=== PATIENT | male | born 1995 | race Caucasian/White ===

== ENCOUNTER 2020-03-21 16:07 | Emergency (ER) | payer OTHER ==
[~2020-03-21] VITALS: Ht 193 cm; Wt 93.0 kg
[2020-03-21] MEDS ORDERED: VENTOLIN HFA18 GM INH (16:32)
== END 2020-03-21 17:27 | disposition home or self-care (01) ==
LOC: ED 16:07
DX: S83.91XA Sprain of unspecified site of right knee, initial encounter (principal); J45.909 Unspecified asthma, uncomplicated; Z87.891 Personal history of nicotine dependence; Z79.899 Other long term (current) drug therapy; W17.89XA Other fall from one level to another, initial encounter
CPT/HCPCS: 73560; 99283-25

== ENCOUNTER 2021-07-15 07:21 | Emergency (ER) | payer OTHER, BC ==
[~2021-07-15] VITALS: Ht 193 cm; Wt 90.7 kg
[~2021-07-15 07:21] MED LIST: VENTOLIN HFA18 GM INH
[2021-07-15] MEDS ORDERED: CEPHALEXIN500 MG PO (08:47)
[2021-07-15] MEDS ORDERED: HYDROCODON-ACE1 EA10 PO (08:47)
== END 2021-07-15 09:14 | disposition home or self-care (01) ==
LOC: ED 07:21
DX: S62.603B Fracture of unspecified phalanx of left middle finger, initial encounter for open fracture (principal); J45.909 Unspecified asthma, uncomplicated; Z87.891 Personal history of nicotine dependence; Z79.899 Other long term (current) drug therapy; W45.8XXA Other foreign body or object entering through skin, initial encounter; Y99.0 Civilian activity done for income or pay; Z23 Encounter for immunization
CPT/HCPCS: 64450; 73140; 90471; 90715; 99283-25; A9270

== ENCOUNTER 2022-09-23 10:17 | Emergency (ER) | payer SELFPAY ==
[~2022-09-23] VITALS: Ht 193 cm; Wt 103.2 kg
--- OUTSIDE RECORDS SUMMARY | ~2022-09-23 | XMS | Continuity of Care Document ---
Demographics + + + | Address | [address] | | | [place] [address] | + + + | Preferred Language | Unknown | + + + | Marital Status | Never | + + + | Hinduism Affiliation | Unknown | + + + | Race | White | + + + | Ethnic Group | Not or | + + + Author + + + | Author | [facility] | + + + | Organization | [facility] | + + + | Address | [address] | | | [place] [address] | + + + | Phone | | + + + Care Team Providers + + + + | Care Cat Scan Technologist Name | Role | Phone | + + + + Unavailable | Unavailable | + + + + Unavailable | Unavailable | + + + + Allergies No information. Encounters No information. Functional Status No information. Immunizations + + + + | date | description | facility | + + + + | 2021-07-15 00:00 | Tdap | [facility] | + + + + Medications + + + + | date | description | facility | + + + + | 2021-07-15 00:00 | CEPHALEXIN | [facility] | + + + + | 2021-07-15 00:00 | HYDROCODONE | [facility] | | | BIT/ACETAMINOPHEN | | + + + + | 2021-09-20 00:00 | ALBUTEROL SULFATE | [facility] | + + + + Problems + + + + | date | description | facility | + + + + | 2020-03-21 00:00 | Sprain of right knee | [facility] | + + + + | 2021-07-15 00:00 | Puncture wound of finger | [facility] | | | with foreign body | | + + + + | 2021-07-15 00:00 | Open fracture of phalanx | [facility] | | | of finger | | + + + + | 2021-07-15 07:23 | Unspecified asthma, | [facility] | | | uncomplicated [facility] | + + + + | 2021-07-15 07:23 | Puncture wound with foreign | [facility] | | | body of left middle finger | [facility] | | | without damage to nail, | | | | initial encounter | | + + + + | 2021-07-15 07:23 | Fracture of unspecified | [facility] | | | phalanx of left middle | [facility] | | | finger, initial encounter | | | | for open fracture | | + + + + | 2021-07-15 07:23 | Other foreign body or | [facility] | | | object entering through | [facility] | | | skin, initial encounter | | + + + + | 2021-07-15 07:23 | Civilian activity done for | [facility] | | | income or pay | [facility] | + + + + | 2021-07-15 07:23 | Encounter for immunization | [facility] | | | | [facility] | + + + + | 2021-07-15 07:23 | Other snf (current) | [facility] | | | drug therapy | [facility] | + + + + | 2021-07-15 07:23 | Personal history of | [facility] | | | nicotine dependence | [facility] | + + + + Procedures No information. Results/Labs No information. Social History No information. Vital Signs + + + +---------+ | date | measurement | value | units | + + + +---------+ | 2021-07-15 00:00 | BMI | 24.3 | kg/m2 | + + + +---------+ | 2021-07-15 00:00 | BP_diastolic | 83 | mmHg | + + + +---------+ | 2021-07-15 00:00 | BP_systolic | 143 | mmHg | + + + +---------+ | 2021-07-15 00:00 | heart_rate | 74 | /min | + + + +---------+ | 2021-07-15 00:00 | height_metric | 193.04 | cm | + + + +---------+ | 2021-07-15 00:00 | height_standard | 76 | in | + + + +---------+ | 2021-07-15 00:00 | o2_saturation | 99 | % | + + + +---------+ | 2021-07-15 00:00 | respiration_rate | 16 | /min | + + + +---------+ | 2021-07-15 00:00 | temperature_metric | 36.67 | C | | | | | | + + + +---------+ | 2021-07-15 00:00 | | 98 | F | | | temperature_standar | | | | | d | | | + + + +---------+ | 2021-07-15 00:00 | weight_metric | 90.72 | kg | + + + +---------+ | 2021-07-15 00:00 | weight_standard | 200 | lb | + + + +---------+"
--- OUTSIDE RECORDS SUMMARY | ~2022-09-23 | XMS | Continuity of Care Document ---
Demographics + + + | Address | [address] | | | [place] [address] | + + + | Preferred Language | Unknown | + + + | Marital Status | Never | + + + | Episcopal Affiliation | Unknown | + + + | Race | White | + + + | Ethnic Group | Not or | + + + Author + + + | Author | [place] | + + + | Organization | [place] | + + + | Address | [address] | | | [place] [address] | + + + | Phone | | + + + Care Team Providers + + + + | Care Injection Molder Name | Role | Phone | + + + + Unavailable | Unavailable | + + + + Unavailable | Unavailable | + + + + Allergies No information. Encounters No information. Functional Status No information. Immunizations + + + + | date | description | facility | + + + + | 2021-07-15 00:00 | Tdap | [facility] | + + + + Medications + + + + | date | description | facility | + + + + | 2021-07-15 00:00 | CEPHALEXIN | [facility] | + + + + | 2021-07-15 00:00 | HYDROCODONE | [facility] | | | BIT/ACETAMINOPHEN | | + + + + | 2021-09-20 00:00 | ALBUTEROL SULFATE | [facility] | + + + + Problems + + + + | date | description | facility | + + + + | 2020-03-21 00:00 | Sprain of right knee | [facility] | + + + + | 2021-07-15 00:00 | Puncture wound of finger | [facility] | | | with foreign body | | + + + + | 2021-07-15 00:00 | Open fracture of phalanx | [facility] | | | of finger | [...] + + | 2021-07-15 07:23 | Other retirement (current) | [facility] | | | [...]
[~2022-09-23 10:17] MED LIST changes: +CEPHALEXIN500 MG PO; +HYDROCODON-ACE1 EA10 PO
[2022-09-23 12:14] VITALS: BP 125/76
--- NOTE | 2022-09-25 05:58 | EKG ---
[facility] [address] [place], [place] [address] Signed Normal sinus rhythm Normal ECG No previous ECGs available Confirmed by CANELO SMALL MD ([id number]) on 09/25/2022 5:57:51 AM Electronically Signed By: CANELO SMALL 09/25/22 [id number] PATIENT NAME: JUAN CARLOS PENN Electrocardiogram DATE OF : [birth year] PHYSICIAN: CANELO SMALL REPORT #: [id number] REPORT IS CONFIDENTIAL AND NOT TO BE RELEASED WITHOUT AUTHORIZATION
== END 2022-09-23 12:15 | disposition home or self-care (01) ==
LOC: ED 10:17
DX: R07.9 Chest pain, unspecified (principal); J45.909 Unspecified asthma, uncomplicated; Z87.891 Personal history of nicotine dependence
CPT/HCPCS: 36415; 84484; 85379; 93005; 93010